=== PATIENT | male | born 1955 | race Caucasian/White ===

== ENCOUNTER 2023-10-26 21:08 | Inpatient (IN) | payer MEDICARE ==
[~2023-10-26] VITALS: Ht 185.4 cm; Wt 90.0 kg
[~2023-10-26 21:08] MED LIST: AMOCLA875 PO; ASPI81CH PO; Lipitor20 MG PO; PANT40 PO; TRAM50 PO; VISBIOME 112.51 EACH PO
[2023-10-26] MEDS ORDERED: Acetaminophen 325 MG TABLET PO ONE (22:00)
[2023-10-26 22:07] LABS: Hematocrit 42.8 % (37.0-53.0); Hemoglobin 14.2 g/dL (13.5-17.5); Mean Corpuscular HGB 31.1 pg (26.0-34.0); Mean Corpuscular HGB Conc 33.2 g/dL (31.5-36.5); Mean Corpuscular Volume 94 fL (80-100); Mean Platelet Volume 9.6 fL (9.1-12.4); Platelet Count 141 K/mm3 (150-400); RDW Coefficient Variation 14.7 % (11.7-14.2); RDW Standard Deviation 51.1 fL (35.1-46.3); Red Blood Cell Count 4.56 M/mm3 (4.30-5.90); White Blood Cell Count 7.31 K/mm3 (4.00-11.30)
[2023-10-26 22:26] LABS: BAND PERCENT MAN 26 % (0-8); BASOPHILS ABSOLUTE MAN 0.07 K/mm3 (0.00-0.23); BASOPHILS PERCENT MAN 1 % (0-2); EOSINOPHILS PERCENT MAN 0 % (0-6); LYMPHOCYTES ABSOLUTE MAN 0.14 K/mm3 (0.84-5.20); LYMPHOCYTES PERCENT MAN 2 % (21-46); METAMYELOCYTE ABSOLUTE MAN 0.07 K/mm3 (0.00-0.00); METAMYELOCYTE PERCENT MAN 1 % (0-0); MONOCYTES PERCENT MAN 0 % (4-13); NEUTROPHILS ABSOLUTE MAN 7.01 K/mm3 (1.96-9.15); SEG NEUTROPHILS PERCENT MAN 70 % (41-73); TOTAL CELLS COUNTED 100
[2023-10-26 22:33] LABS: Albumin, Blood 3.8 g/dL (3.4-5.0); Bilirubin, Total 1.2 mg/dL (0.1-1.0); Bun/Creatinine Ratio 23.8 (12.0-20.0); Calcium, Blood 8.9 mg/dL (8.5-10.1); Creatinine, Blood 1.26 mg/dL (0.60-1.20); Globulin, Blood 3.8 g/dL (2.2-4.0); Total Protein, Blood 7.6 g/dL (6.4-8.2)
[2023-10-26 22:46] LABS: Influenza A, PCR NEGATIVE (NEGATIVE); Influenza B, PCR NEGATIVE (NEGATIVE); Resp Syncytial Virus, PCR NEGATIVE (NEGATIVE); SARS-Cov-2 (COVID-19) PCR, MMC NEGATIVE (NEGATIVE)
[2023-10-27] VITALS (7 sets, daily range): BP systolic 95–146; BP diastolic 63–89
[2023-10-27] MEDS ORDERED: CefTRIAXone Sodium 1,000 MG in NS 100 ML IV ONE ×2 (00:35→05:00)
[2023-10-27 00:40] LABS: Source, Urine Clean Catch
[2023-10-27] MEDS ORDERED: NS 1,000 ML IV SCH ×3 (00:45→05:00)
[2023-10-27 00:50] LABS: Appearance, Urine Turbid (Clear); Bilirubin, Urine Neg (Neg); Blood, Urine 4+ (Neg); Color, Urine Yellow (P-Yellow); Glucose Qualitative, Urine Neg (Neg); Ketones, Urine 2+ (Neg); Leukocyte Esterase, Urine 3+ (Neg); Nitrite, Urine Pos (Neg); Protein, Urine 3+ (Neg); Urobilinogen, Urine NORM (Normal)
[2023-10-27 00:59] LABS: Amorphous Light (0-Heavy); Bacteria Many /hpf; Squamous Epithelial Cells Few /hpf (Few); White Blood Cells, Urine TNTC /hpf (0-5)
[2023-10-27] MEDS ORDERED: Vancomycin HCL 2,000 MG in NS 500 ML IV ONE (01:25)
[2023-10-27] MEDS ORDERED: Acetaminophen 325 MG TABLET PO PRN ×2 (03:35→05:05)
--- NOTE | 2023-10-27 05:21 | NUR ---
PATIENT IS A NEW ADMIT FROM THE ED. ALERT AND SBA ASSIST FROM GURNEY TO BED. PATIENT REPORTED INCREASE TREMORS AND DIAPHORETIC. REPORTING HE IS HOT AND COLD AND NEXT INCREASED CONFUSION. REPORTED HARD TO BREATH AND PLACED ON 2L O2 NC. PATIENT GETTING COMBATIVE AND NOT FOLLOWING DIRECTIONS. SECURITY CALLED AND CALL PLACED TO RESIDENT DR APRIL PAYTON ([facility]) TO REASSESS. PATIENT PLACED IN RESTRAINTS FOR SECURITY TO STAFF AND PATIENT. INCREASED WEAKNESS WANTING TO GET UP AND POTENTIAL FALL WITH THREE STAFF HOLDING UP AND GETTING BACK IN BED. DR KOHLER IN TO SEE PATIENT AND REPORTS TO SEND TO ICU FOR ETOH WITHDRAWALS.
[2023-10-27] MEDS ORDERED: LORazepam 2 MG/ML 1ML Injection IV PRN ×3 (05:30→22:30)
[2023-10-27] MEDS ORDERED: ChlordiazePOXIDE 25 MG Cap PO PRN ×2 (05:35→22:30)
[2023-10-27 05:47] LABS: U Amphetamine Screen Not Detected; U Barbituate Screen Not Detected; U Benzodiazapine Screen Not Detected; U Buprenorphine Screen Not Detected; U Cannabinoids Screen Not Detected; U Cocaine Screen Not Detected; U Methadone Screen Not Detected; U Methamphetamine Screen Not Detected; U Opiates Screen DETECTED; U Oxycodone Screen Not Detected; U Phencyclidine Screen Not Detected
[2023-10-27] MEDS ORDERED: Pantoprazole Sodium 20 MG Tab PO SCH (06:00)
[2023-10-27] MEDS ORDERED: Pantoprazole Sodium 40 MG Tab PO SCH (06:00)
[2023-10-27] MEDS ORDERED: HYDROcodone 5-APAP 325 TAB PO PRN (06:10)
[2023-10-27 06:22] LABS: Hematocrit 38.3 % (37.0-53.0); Hemoglobin 12.6 g/dL (13.5-17.5); Mean Corpuscular HGB 31.4 pg (26.0-34.0); Mean Corpuscular HGB Conc 32.9 g/dL (31.5-36.5); Mean Corpuscular Volume 96 fL (80-100); Mean Platelet Volume 9.8 fL (9.1-12.4); Platelet Count 107 K/mm3 (150-400); RDW Coefficient Variation 14.8 % (11.7-14.2); RDW Standard Deviation 51.5 fL (35.1-46.3); Red Blood Cell Count 4.01 M/mm3 (4.30-5.90); White Blood Cell Count 2.33 K/mm3 (4.00-11.30)
[2023-10-27 06:43] LABS: Albumin/Globulin Ratio 0.9 (0.8-1.8); Bilirubin, Total 0.9 mg/dL (0.1-1.0); Calcium, Blood 8.1 mg/dL (8.5-10.1); Creatinine, Blood 1.04 mg/dL (0.60-1.20); Globulin, Blood 3.3 g/dL (2.2-4.0); Potassium, Blood 3.6 mmol/L (3.5-5.5); Total Protein, Blood 6.3 g/dL (6.4-8.2)
[2023-10-27 06:56] LABS: BAND PERCENT MAN 26 % (0-8); BASOPHILS PERCENT MAN 0 % (0-2); EOSINOPHILS PERCENT MAN 0 % (0-6); LYMPHOCYTES ABSOLUTE MAN 0.06 K/mm3 (0.84-5.20); LYMPHOCYTES PERCENT MAN 3 % (21-46); METAMYELOCYTE ABSOLUTE MAN 0.02 K/mm3 (0.00-0.00); METAMYELOCYTE PERCENT MAN 1 % (0-0); MONOCYTES ABSOLUTE MAN 0.02 K/mm3 (0.16-1.47); MONOCYTES PERCENT MAN 1 % (4-13); NEUTROPHILS ABSOLUTE MAN 2.21 K/mm3 (1.96-9.15); SEG NEUTROPHILS PERCENT MAN 69 % (41-73); TOTAL CELLS COUNTED 100
[2023-10-27] MEDS ORDERED: NS 1,000 ML IV ONE ×2 (08:55→11:15)
[2023-10-27] MEDS ORDERED: Atorvastatin 10 MG Tab PO SCH ×2 (09:00)
[2023-10-27] MEDS ORDERED: Thiamine HCl 100 MG in NS 50 ML IV SCH (09:00)
[2023-10-27] MEDS ORDERED: Enoxaparin 40 MG/0.4 ML SYR SC SCH (09:00)
[2023-10-27] MEDS ORDERED: Metoprolol Tartrate 1 MG/ML 5 ML VIAL IV PRN (12:10)
[2023-10-27] MEDS ORDERED: Vancomycin HCL 1,500 MG in NS 250 ML IV SCH (14:00)
--- NOTE | 2023-10-27 14:33 | NUR ---
[address] chilel re pt t to icu. presents stable at this time. released from restraints. 0830 discussed pt condition, and bp 98/63 and h/r. orders for 1 l bolus 1100 after bolus bp 102/74 p 114 discussed with orders for 1l bolus. 1300 bp 107/73 after bolus #2, okay per dr chilel, no new orders 1342 lab called, gram neg bacilli both sets blood, notified no new orders.
--- NOTE | 2023-10-27 14:40 | NUR ---
0826 dr chilel d/c orders for etoh w/d
--- NOTE | 2023-10-27 19:05 | NUR ---
PT PLEASANT TODAY. DID NOT TRANSFER TO ICU. CAME AND SAW THIS AM AND DISCUSSED PLAN. D/C CIWA, AND D/C THE RESTRAINTS. FULLY A/O. FOLLOWING INSTRUCTIONS. DID HAVE MILD HEADACHE THIS AFTERNOON. MED PER EMAR. STATES FEELING BETTER OVERALL TODAY. ABLE TO GET UP AND SHOWER TODAY WITH NO ISSUES. 2 LITER BOLUS GIVEN TODAY FOR BP AND H/R. BOTH LEVELED. EKG DONE AND ECHO ORDERED. NO OTHER CONCERNS NOTED. BED IN LOW POSITION, CALL LITE IN REACH, CALLS APPROP
--- NOTE | 2023-10-27 19:49 | NUR ---
PATIENT REPORTING FEELING COLD AND SHIVERING AT SHIFT CHANGE. TEMP 98.3. WARM COVERS PROVIDED. FEELING SOB AND PLACED ON 2L O2 NC STATING 97% ON RA. NOW N/V AND EMESIS BAG PROVIDED.
[2023-10-27] MEDS ORDERED: Ondansetron HCl 2 MG / ML 2ML Vial IV PRN (20:25)
--- NOTE | 2023-10-27 21:06 | NUR ---
PASTRY SUPERVISOR REPORTS AFIB 150-170. PATIENT AGITATED AND CONFUSED. TRYING TO GET OUT OF BED. IV LOPRESSOR 5MG GIVEN WITH CARDIAC MONITORING. IV ZOFRAN AND IV ATIVAN GIVEN PER EMAR. PATIENT SIGNIFICANT OTHER IN ROOM FOR 15 MINUTES AND LEFT. PATIENT THINKS HE IS AT HOME AND WANTS TO PULL IV OUT, O2 OFF, AND TELE LEADS OFF. SITTING AT SIDE OF BED. PATIENT HAD ORDER TO TRANSFER TO ICU THIS MORNING AND REMAINED ON MEDICAL FLOOR. HE WAS TAKEN OUT OF 4 POINT RESTRAINTS. WCTM.
[2023-10-27] MEDS ORDERED: LORazepam 2 MG/ML 1ML Injection IV ONE (22:20)
--- NOTE | 2023-10-27 23:18 | NUR ---
PATIENT HR IS AFIB 113. PATIENT SIGNIFICANT OTHER REPORTS HE DRINKS DAILY AND RECENTLY BOUGHT A GALLON OF VODKA AND DRANK IT OVER LAST WEEKEND THROUGH 10/22. HOSPITALIST SERA CARDENAS NOTIFIED AND HAD RESIDENT ORDER CIWA SET AND IV ATIVAN 2 MG X ONE.
[2023-10-28] VITALS (7 sets, daily range): BP systolic 102–168; BP diastolic 72–108
--- NOTE | 2023-10-28 00:03 | NUR ---
SLEEPING, HR AFIB 97. WCTM.
[2023-10-28 00:55] LABS: Hematocrit 34.7 % (37.0-53.0); Hemoglobin 11.2 g/dL (13.5-17.5); Mean Corpuscular HGB 30.9 pg (26.0-34.0); Mean Corpuscular HGB Conc 32.3 g/dL (31.5-36.5); Mean Corpuscular Volume 96 fL (80-100); Mean Platelet Volume 9.9 fL (9.1-12.4); Platelet Count 101 K/mm3 (150-400); RDW Standard Deviation 53.4 fL (35.1-46.3); Red Blood Cell Count 3.62 M/mm3 (4.30-5.90); White Blood Cell Count 4.84 K/mm3 (4.00-11.30)
[2023-10-28 01:17] LABS: Vancomycin, Trough 13.9 ug/mL (5.0-10.0)
[2023-10-28 01:20] LABS: Bun/Creatinine Ratio 27.4 (12.0-20.0); Calcium, Blood 7.7 mg/dL (8.5-10.1); Creatinine, Blood 0.95 mg/dL (0.60-1.20); Thyroid Stimulating Hormone 0.541 uIU/mL (0.360-4.800)
[2023-10-28 01:22] LABS: BAND PERCENT MAN 27 % (0-8); BASOPHILS PERCENT MAN 0 % (0-2); EOSINOPHILS ABSOLUTE MAN 0.09 K/mm3 (0.00-0.68); EOSINOPHILS PERCENT MAN 2 % (0-6); LYMPHOCYTES ABSOLUTE MAN 0.19 K/mm3 (0.84-5.20); LYMPHOCYTES PERCENT MAN 4 % (21-46); MONOCYTES ABSOLUTE MAN 0.24 K/mm3 (0.16-1.47); MONOCYTES PERCENT MAN 5 % (4-13); SEG NEUTROPHILS PERCENT MAN 62 % (41-73); TOTAL CELLS COUNTED 100
--- NOTE | 2023-10-28 03:58 | NUR ---
OCEAN FORWARDER REPORTS [address] AND BACK DOWN TO NSR 90. PATIENT SLEEPING. TM.
--- NOTE | 2023-10-28 04:08 | NUR ---
SHIFT SUMMARY PATIENT HAD SIMILAR EVENT RIGHT AFTER SHIFT CHANGE REPORTING FEELING COLD/SHIVERING WITH TREMORS. BECAME NAUSEOUS AND CISTERN ROOM OPERATOR REPORTED HR AFIB 150-170. PATIENT BECAME AGITATED AND CONFUSED TRYING TO PULL OUT PIV, TELE LEADS OFF AND O2 OFF. IV LOPRESSOR 5 MG GIVEN FOR HR >120 AND IV ZOFRAN GIVEN FOR N/V. HOSPITALIST SERA CARDENAS NOTIFIED AND IV ATIVAN 2 MG GIVEN X ONE FOR ETOH WITHDRAWALS. SIGNIFICANT OTHER REPORT PATIENT DRINKS DAILY VODKA AND BOUGHT A GALLON VODKA WEEKEND PRIOR AND FINISHED BY LAST 10/22. RESIDENT DR CHANELLE PAYTON CAME TO ASSESS PATIENT AND ORDERED CIWA SET PROTOCOL AND ALCOHOL WITHDRAWAL ASSESSMENT. CIWA LATER SCORED 8 AND THAN 4. PATIENT MENTATION CLEARED AND ABLE TO SLEEP. TWO ASSIST TO BR. HR NOW AFIB 90. AFEBRILE. PATIENT RESTED SECOND HALF OF SHIFT. PIV INTACT. IV ABX INFUSED. NS @ 100 INFUSING. CALL LIGHT IN REACH. WILL CONTINUE TO MONITOR UNTIL DAY SHIFT NURSE ASSUMES CARE.
[2023-10-28] MEDS ORDERED: CefTRIAXone Sodium 2,000 MG in NS 100 ML IV SCH (06:00)
[2023-10-28] MEDS ORDERED: Thiamine HCl 100 MG Tab PO SCH (09:00)
[2023-10-28] MEDS ORDERED: Metoprolol Tartrate 25 MG Tab PO SCH (09:00)
[2023-10-28] MEDS ORDERED: Albuterol 2.5 MG/3 ML VIAL INH PRN (09:20)
--- NOTE | 2023-10-28 16:30 | NUR ---
PT QUITE PLEASANT COOP TODAY. A/O X3, TALKATIVE. DENIES PAIN TODAY. DENIES HEADACHE. NO TELE HEART RATE ISSUES NOTED THIS SHIFT. PER TELE, CONVERTED TO SINUS TACH LAST BELLO AROUND 21:00, AFTER AFIB RVR EPISODE AROUND 20:30. HAS CONTINUED IN S TACH T/O DAY, LOW 100'S. NO NEW CONCERNS NOTED. BED IN LOW POSITION, CALL LITE IN REACH, CALLS APPROP
--- NOTE | 2023-10-28 21:05 | NUR ---
TECH REPORTED AT SHIFT CHANGE 10 BEAT RUN OF V-TACH TO [address] AND BACK TO SR 99. PATIENT RESTING. WCTM.
[2023-10-29 04:07] VITALS: BP 178/106
--- NOTE | 2023-10-29 04:07 | NUR ---
SHIFT SUMMARY NO ETOH WITHDRAWALS OBSERVED. AXOX 4 AND ONE ASSIST TO BR. DENIES CHEST PAIN, SOB, AND N/V. VSS/AFEBRILE. REPORTED HEAD PAIN AND NORCO GIVEN X ONE PER EMAR. PIV INTACT. IV ABX INFUSED. TELE MONITOR NSR 99 WITH ONE EVENT (SEE NOTE). COOPERATIVE WITH CARE. CALL LIGHT IN REACH. BED IN LOWEST POSITION. WILL CONTINUE TO MONITOR UNTIL DAY SHIFT NURSE ASSUMES CARE.
[2023-10-29 05:06] LABS: Hematocrit 35.4 % (37.0-53.0); Hemoglobin 11.2 g/dL (13.5-17.5); Mean Corpuscular HGB 30.3 pg (26.0-34.0); Mean Corpuscular HGB Conc 31.6 g/dL (31.5-36.5); Mean Corpuscular Volume 96 fL (80-100); Mean Platelet Volume 10.5 fL (9.1-12.4); Platelet Count 106 K/mm3 (150-400); RDW Coefficient Variation 14.7 % (11.7-14.2); RDW Standard Deviation 52.1 fL (35.1-46.3); White Blood Cell Count 3.24 K/mm3 (4.00-11.30)
[2023-10-29 05:34] LABS: Albumin, Blood 2.3 g/dL (3.4-5.0); Anion Gap 11 mmol/L (3-11); Blood Urea Nitrogen 18 mg/dL (8-24); Bun/Creatinine Ratio 20.4 (12.0-20.0); CO2, Blood 22 mmol/L (21-32); Calcium, Blood 8.2 mg/dL (8.5-10.1); Chloride, Blood 111 mmol/L (98-108); Creatinine, Blood 0.88 mg/dL (0.60-1.20); Glomerular Filtration Rate 93 (60-); Glucose, Blood 118 mg/dL (70-99); Phosphorus, Blood 2.3 mg/dL (2.5-4.9); Potassium, Blood 3.7 mmol/L (3.5-5.5); Sodium, Blood 140 mmol/L (136-145)
[2023-10-29 05:35] LABS: BAND PERCENT MAN 41 % (0-8); BASOPHILS PERCENT MAN 0 % (0-2); EOSINOPHILS ABSOLUTE MAN 0.03 K/mm3 (0.00-0.68); EOSINOPHILS PERCENT MAN 1 % (0-6); LYMPHOCYTES ABSOLUTE MAN 0.35 K/mm3 (0.84-5.20); LYMPHOCYTES PERCENT MAN 11 % (21-46); MONOCYTES ABSOLUTE MAN 0.25 K/mm3 (0.16-1.47); MONOCYTES PERCENT MAN 8 % (4-13); NEUTROPHILS ABSOLUTE MAN 2.59 K/mm3 (1.96-9.15); SEG NEUTROPHILS PERCENT MAN 39 % (41-73); TOTAL CELLS COUNTED 100
--- NOTE | 2023-10-29 06:39 | NUR ---
PATIENT HAVING TREMORS, CHILLS, PROXYSMAL SWEATS, ANXIETY AND HEADACHE. CIWA 9 AND IV ATIVAN 2 MG GIVEN PER EMAR. FIRST EVENT OF REAL ESTATE SITE ANALYST. TELE MONITOR REPORTS HR ST 140. WCTM.
--- NOTE | 2023-10-29 07:35 | NUR ---
PATIENT HAVING INCREASED CONFUSION REPORTING HIS SISTER WAS IN THE ROOM. PATIENT PULLED HIS TELE LEADS OFF AND PUT CLOTHS ON REPORTING HE IS LEAVING AMA. SIGNIFICANT OTHER CALLED AND ON PATIENT CELL PHONE ENCOURAGING HIM TO STAY FOR MEDICAL REASONS AND FOR HER. PATIENT EVENTUALLY ABLE TO BE TALKED INTO STAYING. DR VELAZQUEZ NOW IN ROOM AND GAVE ORDER TO DAY RN FOR IV ATIVAN 2MG. TELEMETRY LEADS BEING REPLACED AND A NEW PIV. PATIENT RESTING IN BED AT THIS TIME. CHARGE REPORTS THEY WILL TAKE OVER CARE WITH DAY RN.
[2023-10-29 08:02] VITALS: BP 144/89
[2023-10-29] MEDS ORDERED: Potassium Phos/Sodium Phos 250 MG PACK PO ONE (15:10)
[2023-10-29 15:48] VITALS: BP 153/103
--- NOTE | 2023-10-29 18:48 | NUR ---
SHIFT SUMMARY: PT A/0 X3. OCCASIONALLY CONFUSED. UPON ARRIVAL TO DAY SHIFT PT EXTREMELY ANGRY/AGITATED/ANXIOUS. RECEIVED CALL FROM TELE HR IN 150'S-160'S. PT ACHEIVED IN GETTING DRESSED AND WALKED OUT TO NURSES STATION STATING HE WAS GOING TO LEAVE. AT THIS TIME PT BEGAN YELLING AND PROFUSELY SWEATING. PT SAT DOWN AT NURSE DAMAGE INSIDE ADJUSTER AND STAFF ATTEMPTED TO CALM PT. PT GIRLFRIENEdson AND DR. CRISTINA CALLED BY THIS RN. AT THIS TIME PT GIRLFRIEND CALLED PT AND DEMANDED HE STAY IN HOSPITAL. PT EVENTUALLY RETURNED TO ROOM. ATIVAN ATTEMPTED TO BE GIVEN BUT PT HAD BAD IV. DESIRAE, NURSE LEADER INSERTED NEW IV IN RFA. ATIVAN GIVEN POST IV INSERTION. ABOUT 30 MINUTES LATER PT FELL ASLEEP AND SLEPT UNTIL AROUND 1200. PT HAD BEEN COOPERATIVE FOLLOWING EPISODE UNTIL AROUND 1600 WHEN PT CALLED GIRLFRIENEdson AND THIS RN OVERHEARD PT STATE "THEY ARE NOT DOING A THING FOR ME" AND "NOBODY HAS CHECKED ON ME IN SEVERAL HOURS" ALSO STATING THAT STAFF IS NOT DOING ANYHTING TO HELP WITH HIS DIAGNOSIS. OVERHEARD GIRLFRIEND OF PT STATE SHE IS GOING TO BE CALLING ANOTHER DOCTOR IN TO SEE PT WELL CALL STATE ON THIS HOSPITAL WE ARE "NOT DOING ANYTHING" AND HAD NOT CALLED TO GIVE UPDATES BUT MORE THAN ONCE. PT PLEASANT AND COOPERATIVE AT THIS TIME. CALL LIGHT IN REACH. BED UN LOWEST POSITION.
[2023-10-29 19:43] VITALS: BP 165/110
[2023-10-29] MEDS ORDERED: Lactobacil 2-S.Thermo-Bifido 1 1 Cap PO SCH (21:00)
[2023-10-30 04:16] VITALS: BP 147/105
[2023-10-30 05:07] LABS: Hematocrit 34.3 % (37.0-53.0); Hemoglobin 11.3 g/dL (13.5-17.5); Mean Corpuscular HGB Conc 32.9 g/dL (31.5-36.5); Mean Corpuscular Volume 94 fL (80-100); Mean Platelet Volume 10.6 fL (9.1-12.4); Platelet Count 111 K/mm3 (150-400); RDW Coefficient Variation 14.6 % (11.7-14.2); RDW Standard Deviation 50.8 fL (35.1-46.3); Red Blood Cell Count 3.65 M/mm3 (4.30-5.90)
--- NOTE | 2023-10-30 05:28 | NUR ---
REGIONAL WILDLIFE AGENT PATIENT IS A&OX3, CONFUSED AT TIME, BED ALARM ON, BED IN LOWER POSITION AND CALL LIGHT IN REACH. VITALS ARE SLIGHTLY ELEVATED, ON ROOM AIR. PATIENT WAS CALM AND COOPERATIVE AND SLEPT THROUGHOUT THE NIGHT. ON TELE RUNNING SINUS AT 79.
[2023-10-30 05:37] LABS: BAND PERCENT MAN 13 % (0-8); BASOPHILS PERCENT MAN 0 % (0-2); EOSINOPHILS ABSOLUTE MAN 0.19 K/mm3 (0.00-0.68); EOSINOPHILS PERCENT MAN 5 % (0-6); LYMPHOCYTES ABSOLUTE MAN 0.58 K/mm3 (0.84-5.20); LYMPHOCYTES PERCENT MAN 15 % (21-46); MONOCYTES PERCENT MAN 13 % (4-13); MYELOCYTE ABSOLUTE MAN 0.03 K/mm3 (0.00-0.00); MYELOCYTE PERCENT MAN 1 % (0-0); NEUTROPHILS ABSOLUTE MAN 2.57 K/mm3 (1.96-9.15); SEG NEUTROPHILS PERCENT MAN 53 % (41-73); TOTAL CELLS COUNTED 100
[2023-10-30 05:42] LABS: Bun/Creatinine Ratio 16.1 (12.0-20.0); Calcium, Blood 8.4 mg/dL (8.5-10.1); Creatinine, Blood 0.81 mg/dL (0.60-1.20); Potassium, Blood 3.7 mmol/L (3.5-5.5)
[2023-10-30 08:07] VITALS: BP 149/102
[2023-10-30] MEDS ORDERED: Acetaminophen650 M1 PO (14:59)
[2023-10-30] MEDS ORDERED: CEPH500 PO (15:00)
[2023-10-30] MEDS ORDERED: METO25 PO (15:00)
--- NOTE | 2023-10-30 15:55 | NUR ---
DISCHARGE DISCHARGE MEDICATIONS AND INSTRUCTIONS EXPLAINED TO PATIENT. PATIENT STATED UNDERSTANDING. IV REMOVED WITHOUT ISSUE. BELONGINGS WITH PATIENT. PATIENT TRANSFERED VIA WHEELCHAIR TO PRIVATE VEHICLE.
== END 2023-10-30 16:00 | disposition home or self-care (01) | DRG 872 ==
LOC: ER 21:08 → MEDS 21:09
PROVIDERS: Emergency Medicine; Family Medicine; Student in an Organized Health Care Education/Training Program; ADMIT Internal Medicine
PROC: HZ2ZZZZ Detoxification Services for Substance Abuse Treatment (ICD-10-PCS; principal; 2023-10-27)
PROC: 3E03329 Introduction of Other Anti-infective into Peripheral Vein, Percutaneous Approach (ICD-10-PCS; 2023-10-27)
DX: A41.51 Sepsis due to Escherichia coli [E. coli] (principal); N39.0 Urinary tract infection, site not specified; D61.818 Other pancytopenia; F10.239 Alcohol dependence with withdrawal, unspecified; E78.5 Hyperlipidemia, unspecified; I48.0 Paroxysmal atrial fibrillation; K21.9 Gastro-esophageal reflux disease without esophagitis; D64.9 Anemia, unspecified; M19.90 Unspecified osteoarthritis, unspecified site; Z79.82 Long term (current) use of aspirin; Z79.899 Other long term (current) drug therapy; Z88.5 Allergy status to narcotic agent; Z79.2 Long term (current) use of antibiotics; Z78.1 Physical restraint status; Z98.890 Other specified postprocedural states; E83.39 Other disorders of phosphorus metabolism
CPT/HCPCS: 0241U; 36415; 71045; 76770; 80048; 80053; 80069; 80202; 81001; 83605; 84145; 84443; 85025; 86140; 87040; 87077; 87086; 87186; 93005; 93010; 93306; 94640; 94664; 94760; 96365; 96366; 96367; 96372; 96375; 99285-25; A9270; C9113; G0378; J0696; J1650; J2060; J2405; J3370; J3411; J7030; J7040; J7050

== ENCOUNTER 2024-06-03 14:19 | Emergency (ER) | payer MEDICARE ==
[~2024-06-03] VITALS: Ht 185.4 cm; Wt 97.5 kg
[~2024-06-03 14:19] MED LIST changes: +Acetaminophen650 M1 PO; +CEPH500 PO; +METO25 PO
[2024-06-03 15:19] LABS: Source, Urine Clean Catch
[2024-06-03 15:19] LABS: BASOPHILS ABSOLUTE AUTO 0.04 K/mm3 (0.00-0.23); BASOPHILS PERCENT AUTO 1 % (0-2); EOSINOPHILS ABSOLUTE AUTO 0.27 K/mm3 (0.00-0.68); EOSINOPHILS PERCENT AUTO 6 % (0-6); Hematocrit 41.2 % (37.0-53.0); Hemoglobin 13.9 g/dL (13.5-17.5); IMMATURE GRAN ABSOLUTE AUTO 0.01 K/mm3 (0.00-0.10); IMMATURE GRAN PERCENT AUTO 0 % (0-1); LYMPHOCYTES ABSOLUTE AUTO 1.04 K/mm3 (0.84-5.20); LYMPHOCYTES PERCENT AUTO 22 % (21-46); MONOCYTES ABSOLUTE AUTO 0.46 K/mm3 (0.16-1.47); MONOCYTES PERCENT AUTO 10 % (4-13); Mean Corpuscular HGB Conc 33.7 g/dL (31.5-36.5); Mean Corpuscular Volume 92 fL (80-100); Mean Platelet Volume 9.5 fL (9.1-12.4); NEUTROPHILS ABSOLUTE AUTO 2.95 K/mm3 (1.96-9.15); NEUTROPHILS PERCENT AUTO 62 % (41-73); Platelet Count 271 K/mm3 (150-400); RDW Coefficient Variation 13.2 % (11.7-14.2); RDW Standard Deviation 44.4 fL (35.1-46.3); Red Blood Cell Count 4.48 M/mm3 (4.30-5.90); White Blood Cell Count 4.77 K/mm3 (4.00-11.30)
[2024-06-03 15:43] LABS: Albumin, Blood 3.8 g/dL (3.4-5.0); Albumin/Globulin Ratio 1.2 (0.8-1.8); Bilirubin, Total 0.8 mg/dL (0.1-1.0); Bun/Creatinine Ratio 26.9 (12.0-20.0); Calcium, Blood 9.1 mg/dL (8.5-10.1); Creatinine, Blood 0.78 mg/dL (0.60-1.20); Globulin, Blood 3.3 g/dL (2.2-4.0); Total Protein, Blood 7.1 g/dL (6.4-8.2)
[2024-06-03 15:48] LABS: Appearance, Urine Clear (Clear); Bilirubin, Urine Neg (Neg); Blood, Urine Neg (Neg); Color, Urine Yellow (P-Yellow); Glucose Qualitative, Urine Neg (Neg); Ketones, Urine Neg (Neg); Leukocyte Esterase, Urine Neg (Neg); Nitrite, Urine Neg (Neg); Protein, Urine Neg (Neg); Urobilinogen, Urine NORM (Normal)
[2024-06-03] MEDS ORDERED: Ketorolac Tromethamine 15mg Vial IV ONE (17:35)
[2024-06-03 17:45] VITALS: BP 164/78
== END 2024-06-03 18:08 | disposition home or self-care (01) ==
LOC: ER 14:19
PROVIDERS: Physician Assistant
DX: K42.9 Umbilical hernia without obstruction or gangrene (principal); E78.5 Hyperlipidemia, unspecified; K21.9 Gastro-esophageal reflux disease without esophagitis; M19.90 Unspecified osteoarthritis, unspecified site; Z88.5 Allergy status to narcotic agent; Z79.82 Long term (current) use of aspirin; Z79.899 Other long term (current) drug therapy
CPT/HCPCS: 74177; 80053; 81003; 83690; 85025; 96374-59; 99284-25; J1885; Q9967

== ENCOUNTER 2024-06-29 01:08 | Emergency (ER) | payer MEDICARE ==
[~2024-06-29] VITALS: Ht 185.4 cm; Wt 99.8 kg
[2024-06-29] MEDS ORDERED: METOPROLOL SUCC25 MG PO (01:32)
[2024-06-29] MEDS ORDERED: TAMSULOSIN HCL0.4 M1 PO (01:32)
[2024-06-29 02:54] LABS: BASOPHILS ABSOLUTE AUTO 0.04 K/mm3 (0.00-0.23); BASOPHILS PERCENT AUTO 1 % (0-2); EOSINOPHILS ABSOLUTE AUTO 0.13 K/mm3 (0.00-0.68); EOSINOPHILS PERCENT AUTO 2 % (0-6); Hematocrit 39.2 % (37.0-53.0); Hemoglobin 13.1 g/dL (13.5-17.5); IMMATURE GRAN ABSOLUTE AUTO 0.03 K/mm3 (0.00-0.10); IMMATURE GRAN PERCENT AUTO 0 % (0-1); LYMPHOCYTES ABSOLUTE AUTO 0.72 K/mm3 (0.84-5.20); LYMPHOCYTES PERCENT AUTO 9 % (21-46); MONOCYTES ABSOLUTE AUTO 0.82 K/mm3 (0.16-1.47); MONOCYTES PERCENT AUTO 10 % (4-13); Mean Corpuscular HGB 30.5 pg (26.0-34.0); Mean Corpuscular HGB Conc 33.4 g/dL (31.5-36.5); Mean Corpuscular Volume 91 fL (80-100); NEUTROPHILS ABSOLUTE AUTO 6.11 K/mm3 (1.96-9.15); NEUTROPHILS PERCENT AUTO 78 % (41-73); Platelet Count 248 K/mm3 (150-400); RDW Coefficient Variation 12.9 % (11.7-14.2); RDW Standard Deviation 43.2 fL (35.1-46.3); Red Blood Cell Count 4.29 M/mm3 (4.30-5.90); White Blood Cell Count 7.85 K/mm3 (4.00-11.30)
[2024-06-29 03:12] LABS: Albumin, Blood 3.5 g/dL (3.4-5.0); Bilirubin, Total 0.5 mg/dL (0.1-1.0); Bun/Creatinine Ratio 24.8 (12.0-20.0); Calcium, Blood 8.7 mg/dL (8.5-10.1); Creatinine, Blood 0.77 mg/dL (0.60-1.20); Globulin, Blood 3.6 g/dL (2.2-4.0); Total Protein, Blood 7.1 g/dL (6.4-8.2)
[2024-06-29] MEDS ORDERED: Ketorolac Tromethamine 30mg Vial IV ONE (03:15)
[2024-06-29] MEDS ORDERED: AMOCLA875 PO (06:32)
[2024-06-29] MEDS ORDERED: Amoxicillin/Clavulanate K 875 MG Tab PO ONE (06:35)
[2024-06-29 07:00] VITALS: BP 114/70
== END 2024-06-29 07:13 | disposition home or self-care (01) ==
LOC: ER 01:08
PROVIDERS: Student in an Organized Health Care Education/Training Program
DX: J02.0 Streptococcal pharyngitis (principal); M54.2 Cervicalgia; E78.5 Hyperlipidemia, unspecified; K21.9 Gastro-esophageal reflux disease without esophagitis; Z88.5 Allergy status to narcotic agent; Z79.899 Other long term (current) drug therapy
CPT/HCPCS: 70491; 80053; 85025; 87430; 93005; 93010; 96374-59; 99284-25; A9270; J1885; Q9967

== ENCOUNTER 2025-02-01 20:38 | Emergency (ER) | payer MEDICARE ==
[~2025-02-01] VITALS: Ht 185.4 cm; Wt 97.5 kg
[~2025-02-01 20:38] MED LIST changes: +METOPROLOL SUCC25 MG PO; +TAMSULOSIN HCL0.4 M1 PO
[2025-02-01 20:41] VITALS: BP 162/111
[2025-02-01] MEDS ORDERED: FAMO40 PO (21:59)
[2025-02-01] MEDS ORDERED: HYDHCL25 PO (21:59)
== END 2025-02-01 22:02 | disposition home or self-care (01) ==
LOC: ER 20:38
DX: L50.0 Allergic urticaria (principal); L29.9 Pruritus, unspecified; E78.5 Hyperlipidemia, unspecified; K21.9 Gastro-esophageal reflux disease without esophagitis; Z88.5 Allergy status to narcotic agent; Z79.899 Other long term (current) drug therapy
CPT/HCPCS: 99282; A9270; J7512